=== PATIENT | male | born 1950 | race Hispanic/Latino ===

== ENCOUNTER 2021-01-12 16:00 | Inpatient (IN) | payer SELFPAY ==
[~2021-01-12] VITALS: Ht 180.3 cm; Wt 110.0 kg
[2021-01-12 17:15] VITALS: BP 125/76
[2021-01-12 17:57] LABS: HEMATOCRIT 39.4 % (42-54); MEAN CORPUSCULAR HEMOGLOBIN 27.9 pg (27.0-33.0); MEAN CORPUSCULAR HGB CONC 30.5 g/dL (32.0-36.0); MEAN CORPUSCULAR VOLUME 91.6 fL (79-99); PLATELET COUNT (AUTO) 211 K/uL (130-400); RED CELL DISTRIBUTION WIDTH 14.8 % (11.0-15.5); WHITE BLOOD COUNT (AUTO) 8.1 K/uL (4.8-10.8)
[2021-01-12 18:09] LABS: ALBUMIN 3.7 g/dL (3.5-5.0); BILIRUBIN,TOTAL 0.5 mg/dL (0.2-1.0); CREATININE 1.3 mg/dL (0.5-1.5); MAGNESIUM 2.2 mg/dL (1.80-2.40); POTASSIUM 4.2 mmol/L (3.5-5.1); TOTAL PROTEIN, SERUM 7.9 g/dL (6.0-8.3)
[2021-01-12] MEDS ORDERED: ACETAMINOPHEN 325 MG TAB PO PRN ×2 (18:30)
[2021-01-12] MEDS ORDERED: NITROGLYCERIN 0.4 MG SL TAB SL PRN (18:30)
[2021-01-12] MEDS ORDERED: ONDANSETRON 4MG INJ IV PRN (18:30)
[2021-01-12 18:37] LABS: B-TYPE NATRIURETIC PEPTIDE 647 pg/mL (0-100)
[2021-01-12 19:45] VITALS: BP 135/90
[2021-01-12] MEDS ORDERED: BUMETANIDE 0.25MG/ML 80ML IV SCH (20:00)
[2021-01-12] MEDS ORDERED: LACTULOSE 20 GM/30 ML UDCUP PO PRN (20:00)
[2021-01-12] MEDS ORDERED: LIDOCAINE HCL-MPF 1% 2ML VIAL IJ PRN (20:00)
[2021-01-12] MEDS ORDERED: 0.9%NACL 10ML VIAL IVP PRN (20:00)
[2021-01-12] MEDS ORDERED: POTASSIUM CHLORIDE 20MEQ/100ML 100 ML IV PRN (20:00)
[2021-01-12] MEDS ORDERED: KCL 20 MEQ ERTAB PO PRN (20:00)
[2021-01-12] MEDS ORDERED: POTASSIUM CHLORIDE 10% ELIXIR 20 MEQ/15 ML UDCUP PO PRN (20:00)
[2021-01-12] MEDS: ATORVASTATIN 40 MG TABLET PO SCH (21:36)
[2021-01-12] MEDS: TAMSULOSIN HCL 0.4 MG CAP.ER.24H PO SCH (21:36)
[2021-01-12] MEDS: FAMOTIDINE 20MG VIAL IV SCH (21:37)
[2021-01-12 23:26] VITALS: BP 121/84
[2021-01-13] VITALS (11 sets, daily range): BP systolic 85–134; BP diastolic 44–79
[2021-01-13 04:55] LABS: BASOPHILS % (AUTO) 0.8 % (0.0-5.0); EOSINOPHILS % (AUTO) 2.8 % (0.0-8.0); HEMATOCRIT 40.1 % (42-54); LYMPHOCYTES % (AUTO) 21.7 % (21.0-51.0); MEAN CORPUSCULAR HEMOGLOBIN 27.5 pg (27.0-33.0); MEAN CORPUSCULAR HGB CONC 29.9 g/dL (32.0-36.0); MEAN CORPUSCULAR VOLUME 91.8 fL (79-99); MONOCYTES % (AUTO) 11.6 % (3.0-13.0); NEUTROPHILS % (AUTO) 62.7 % (40.0-77.0); PLATELET COUNT (AUTO) 211 K/uL (130-400); RED BLOOD CELL COUNT(AUTO) 4.37 MIL/uL (4.50-6.20); RED CELL DISTRIBUTION WIDTH 14.6 % (11.0-15.5); WHITE BLOOD COUNT (AUTO) 8.3 K/uL (4.8-10.8)
[2021-01-13 05:04] LABS: CREATININE 1.3 mg/dL (0.5-1.5); POTASSIUM 3.4 mmol/L (3.5-5.1)
[2021-01-13 05:18] LABS: B-TYPE NATRIURETIC PEPTIDE 627 pg/mL (0-100)
[2021-01-13] MEDS ORDERED: CLOPIDOGREL 300MG TAB PO SCH (06:56)
[2021-01-13] MEDS ORDERED: NITROGLYCERIN 50MG VIAL IV ONE (07:15)
[2021-01-13] MEDS ORDERED: HEPARIN 10,000 UNIT/10ML (1,000 UNIT/ML) VIAL ONE (07:15)
[2021-01-13] MEDS ORDERED: NICARDIPINE 25MG INJ IV ONE (07:15)
[2021-01-13] MEDS ORDERED: LIDOCAINE HCL 400MG/20ML VIAL ONE (07:16)
[2021-01-13] MEDS ORDERED: IOHEXOL-350 50ML VIAL IV ONE (07:16)
[2021-01-13] MEDS ORDERED: IOHEXOL 350 MG/ML 100ML INFUS..BTL IV ONE ×2 (07:16→08:17)
[2021-01-13] MEDS ORDERED: MIDAZOLAM HCL 1 MG/ML 2ML VIAL ONE (07:18)
[2021-01-13] MEDS ORDERED: FENTANYL CITRATE PF 50 MCG/1 ML 2ML VIAL ONE (07:18)
[2021-01-13 07:41] LABS: INR 1.21 (0.85-1.15)
[2021-01-13 07:42] LABS: PARTIAL THROMBOPLASTIN TIME 27.6 SEC (26.3-35.5)
[2021-01-13] MEDS: ENOXAPARIN SODIUM 40 MG/0.4 ML SYRINGE SQ SCH (07:55)
[2021-01-13] MEDS ORDERED: POTASSIUM CHLORIDE 10% ELIXIR 20 MEQ/15 ML UDCUP PO SCH (08:00)
[2021-01-13] MEDS ORDERED: ADENOSINE 90MG VIAL IV ONE (08:09)
[2021-01-13] MEDS ORDERED: PHARMACY COMMUNICATION MISC SCH (09:00)
[2021-01-13] MEDS: BUMETANIDE 1 MG TAB PO SCH ×2 (13:42→21:42)
[2021-01-13] MEDS: FAMOTIDINE 20MG VIAL IV SCH ×2 (13:43→21:42)
[2021-01-13] MEDS: METOPROLOL SUCCINATE 50 MG TAB.SR.24H PO SCH (13:43)
[2021-01-13] MEDS: ASPIRIN 81MG CHEW TAB PO SCH (13:44)
[2021-01-13] MEDS: SACUBITRIL/VALSARTAN 1 EACH TABLET PO SCH (17:24)
[2021-01-13 18:22] LABS: CREATININE 1.6 mg/dL (0.5-1.5); POTASSIUM 3.9 mmol/L (3.5-5.1)
[2021-01-13] MEDS: ATORVASTATIN 40 MG TABLET PO SCH (21:41)
[2021-01-13] MEDS: TAMSULOSIN HCL 0.4 MG CAP.ER.24H PO SCH (21:41)
[2021-01-14] VITALS: BP 94/67
[2021-01-14 04:00] VITALS: BP 110/67
[2021-01-14 05:57] LABS: EOSINOPHILS % (AUTO) 4.7 % (0.0-8.0); HEMATOCRIT 39.9 % (42-54); MEAN CORPUSCULAR HEMOGLOBIN 27.2 pg (27.0-33.0); MEAN CORPUSCULAR HGB CONC 30.6 g/dL (32.0-36.0); MEAN CORPUSCULAR VOLUME 89.1 fL (79-99); MONOCYTES % (AUTO) 13.9 % (3.0-13.0); NEUTROPHILS % (AUTO) 57.2 % (40.0-77.0); PLATELET COUNT (AUTO) 215 K/uL (130-400); RED BLOOD CELL COUNT(AUTO) 4.48 MIL/uL (4.50-6.20); RED CELL DISTRIBUTION WIDTH 14.6 % (11.0-15.5)
[2021-01-14 06:13] LABS: CREATININE 1.5 mg/dL (0.5-1.5); POTASSIUM 3.5 mmol/L (3.5-5.1)
[2021-01-14] MEDS: SACUBITRIL/VALSARTAN 1 EACH TABLET PO SCH (07:18)
[2021-01-14 08:00] VITALS: BP 124/72
[2021-01-14] MEDS ORDERED: CLOPIDOGREL 75MG TAB PO SCH (08:00)
[2021-01-14] MEDS: METOPROLOL SUCCINATE 50 MG TAB.SR.24H PO SCH (08:25)
[2021-01-14] MEDS: ASPIRIN 81MG CHEW TAB PO SCH (08:25)
[2021-01-14] MEDS: FAMOTIDINE 20MG VIAL IV SCH (08:26)
[2021-01-14] MEDS: ENOXAPARIN SODIUM 40 MG/0.4 ML SYRINGE SQ SCH (08:26)
[2021-01-14] MEDS ORDERED: BUMETANIDE 1 MG TAB PO SCH (09:00)
[2021-01-14] MEDS ORDERED: METO-391 PO (09:05)
[2021-01-14] MEDS ORDERED: LISI5TAB21 PO (09:05)
[2021-01-14] MEDS ORDERED: ATOR40TA71 PO (09:05)
[2021-01-14] MEDS ORDERED: ASPI-1197 PO (09:05)
[2021-01-14] MEDS ORDERED: POTA-79 PO (09:05)
[2021-01-14] MEDS ORDERED: FURO20TA4 PO (09:05)
[2021-01-14 13:33] VITALS: BP 115/73
== END 2021-01-14 14:30 | disposition home or self-care (01) | DRG 286 ==
LOC: EDH 16:00 → 4CH 16:00 → UNDOADMIN 16:00 → EDSTATUS 16:51 → 4CH 20:18
PROVIDERS: ADMIT Internal Medicine; ATTEND Internal Medicine
PROC: 4A023N7 Measurement of Cardiac Sampling and Pressure, Left Heart, Percutaneous Approach (ICD-10-PCS; principal; 2021-01-13)
PROC: B2111ZZ Fluoroscopy of Multiple Coronary Arteries using Low Osmolar Contrast (ICD-10-PCS; 2021-01-13)
PROC: 4A033BC Measurement of Arterial Pressure, Coronary, Percutaneous Approach (ICD-10-PCS; 2021-01-13)
DX: I25.10 Atherosclerotic heart disease of native coronary artery without angina pectoris (principal); I50.23 Acute on chronic systolic (congestive) heart failure; I13.0 Hypertensive heart and chronic kidney disease with heart failure and stage 1 through stage 4 chronic kidney disease, or unspecified chronic kidney disease; E78.5 Hyperlipidemia, unspecified; I25.5 Ischemic cardiomyopathy; N18.2 Chronic kidney disease, stage 2 (mild); H54.61 Unqualified visual loss, right eye, normal vision left eye; E66.9 Obesity, unspecified; Z96.652 Presence of left artificial knee joint; Z68.36 Body mass index [BMI] 36.0-36.9, adult; Z79.82 Long term (current) use of aspirin; Z79.899 Other long term (current) drug therapy
CPT/HCPCS: 36415; 71046; 80048; 80053; 83735; 83880; 85025; 85027; 85347; 85610; 85730; 93005; 93458; 93571; 93970; 99156; 99157; C1769; C1887; G0378; J0153; J1644; J1650; J2250; J3010; J3480; J3490; Q9967